=== PATIENT | female | born 1970 | race African-American/Black ===

== ENCOUNTER 2016-11-15 05:21 | Day surgery (SDC) | payer OTHER ==
[2016-10-31 12:57] VITALS: BMI 33.3
[~2016-11-15 05:21] MED LIST: BUPIVACAINE HCL/PF 0.5% (5MG/ML) 10 ML VIAL IJ ONE
[2016-11-15] MEDS ORDERED: BUPIVACAINE HCL/PF 0.5% (5MG/ML) 10 ML VIAL ONE (08:30)
[2016-11-15] MEDS ORDERED: LIDOCAINE HCL/PF 2% SDV 5ML VIAL ONE (08:48)
[2016-11-15] MEDS ORDERED: KETOROLAC TROMETHAMINE 30 MG/1 ML VIAL ONE (08:48)
[2016-11-15] MEDS ORDERED: MIDAZOLAM HCL 2 MG/2 ML SINGLE DOSE VIAL ONE (08:48)
[2016-11-15] MEDS ORDERED: PROPOFOL 20 ML ONE (08:48)
[2016-11-15] MEDS ORDERED: ceFAZolin SODIUM 1 GM VIAL ONE (08:48)
--- NOTE | 2016-11-15 09:28 | HP ---
Satellite [facility] - Chief Complaint Chief Complaint: right knee pain - Past Medical History Allergies/Adverse Reactions: Allergies Allergy/AdvReac Type Severity Reaction Status Date / Time No Known Drug Allergies Allergy Verified 11/15/16 08:19 ...LMP: 01/05/14 ...LMP Comment: s/p partial hysterectomy - Current Medications Current Medications: Home Medications Medication Instructions Recorded Docusate Sodium [Colace -] 100 mg PO TID 08/05/13 Emtricitabine/Tenofovir [Truvada -] 1 tab PO DAILY 08/05/13 Ferrous Sulfate 325 mg PO DAILY 08/05/13 Folic Acid 1 mg PO DAILY 08/05/13 Gabapentin [Neurontin] 300 mg PO QID 08/05/13 Multivitamin [Multivitamins] 1 each PO DAILY 08/05/13 Raltegravir [Isentress] 400 mg PO BID 08/05/13 Ranitidine HCl [Zantac] 150 mg PO HS 08/05/13 Ascorbic Acid [Vitamin C -] 500 mg PO DAILY 04/02/16 Atorvastatin Ca [Lipitor] 10 mg PO HS 04/02/16 Fish Oil 1,000 mg Softgel 1,000 mg PO DAILY 04/02/16 Losartan Potassium 50 mg PO BID 04/02/16 Maraviroc [Selzentry] 300 mg PO BID 04/02/16 Carvedilol [Coreg] 50 mg PO BID 10/31/16 Hydrochlorothiazide 25 mg PO DAILY 10/31/16 Quetiapine Fumarate "Xr" [Seroquel 50 mg PO DAILY 10/31/16 XR] Quetiapine Fumarate [Seroquel -] 25 mg PO HS 10/31/16 Aspirin [ASA -] 81 mg PO DAILY 11/15/16 Hydrocodone/Acetaminophen [[place] 1 - 2 each PO Q6H #40 tablet MDD 8 11/15/16 5-325 Tablet] Satellite Physical Exam - Physical Examination Vital Signs: Vital Signs Period Temp Pulse Resp BP Sys/Good Pulse Ox Last 24 Hr 98.6 F 101 18 149/89 98 General Appearance: Well Nourished, Well Developed, Alert & Oriented x3 ENT: Clear Lung: Normal air movement Heart: Regular rate & rhythm Extremities: Other (right knee- + swelling, + ttp ,decr rom, + mcmurrays, + apleys, nvi MRI + mmt) Neurological: Intact, Alert, Oriented Satellite Impression/Plan - Impression/Plan Impression: right knee mmt Operative Procedure: right knee arthroscopy Date to be Performed: 11/15/16
[2016-11-15] MEDS ORDERED: BUPIVACAINE HCL/PF 0.5% (5MG/ML) 10 ML VIAL IJ ONE (09:34)
--- NOTE | 2016-11-15 09:42 | OP ---
Operative Note - Note: Operative Date: 11/15/16 Pre-Operative Diagnosis: right knee medial meniscus tear, OA Operation: right knee arthroscopy, partial medial and lateral meniscectomy, debridement chondroplasty Post-Operative Diagnosis: Same as Pre-op Surgeon: Christ Quiles Anesthesiologist/CLINICIAN ONCOLOGY: Yi Villa Anesthesia: General, Local Specimens Removed: shavings Estimated Blood Loss (mls): 0 Drains, Volume Out (mls): 0 Blood Volume Replaced (mls): 0 Fluid Volume Replaced (mls): 500 Operative Report Dictated: Yes
[2016-11-15] MEDS ORDERED: ONDANSETRON 4 MG/2 ML VIAL IVPUSH PRN (09:49)
[2016-11-15] MEDS ORDERED: oxyCODONE HCL 5 MG TABLET PO PRN (09:49)
[2016-11-15] MEDS ORDERED: ACETAMINOPHEN 1000 MG/100 ML VIAL (NON FORMULARY) IVPB PRN (09:50)
[2016-11-15] MEDS ORDERED: LACTATED RINGERS SOLUTION 1,000 ML IV SCH (10:00)
--- NOTE | 2016-11-15 11:01 | OP ---
DATE OF OPERATION: DATE OF DICTATION: 11/15/2016 PREOPERATIVE DIAGNOSES: Right knee pain, medial meniscus tear, and osteoarthritis. POSTOPERATIVE DIAGNOSES: Right knee pain, medial meniscus tear, osteoarthritis, lateral meniscus tear. PROCEDURES: Right knee arthroscopy, partial medial and lateral meniscectomy, and debridement chondroplasty. SURGEON: Christ Quiles MD COATER OPERATOR: None. ANESTHESIOLOGIST: Yi Villa MD ANESTHESIA: LMA with local injection of 20 mL of 0.5% Marcaine. FLUID REPLACEMENT: 500 mL. SPECIMEN: Arthroscopic shavings. DRAINS: None. COMPLICATIONS: None. INDICATIONS: This patient is a 46-year-old female with a preoperative diagnosis of right knee pain, medial meniscus tear, and osteoarthritis. After understanding the potential risks, complications, alternatives, and benefits of surgical versus nonsurgical treatment, the patient elected to undergo the procedure. PROCEDURE: Patient was brought to the operating room, peripheral IV placed, IV sedation given. One gram of IV Ancef was given. LMA anesthesia was induced. Ample Webril was placed around the right thigh. Tourniquet was applied. The Styrofoam ring was applied. The right lower extremity was placed into the C-clamp leg rollins with ample padding throughout. The right lower extremity was prepped and draped in sterile fashion, elevated, exsanguinated with an Esmarch bandage, and tourniquet inflated to 250 mmHg. A superior medial outflow portal was established, a lateral portal was established under direct visualization. The arthroscope was placed into the knee under direct visualization. Using a spinal needle and a number-15 scalpel blade, a medial portal was established and a diagnostic arthroscopy was performed. Patient was seen to have some degenerative-type fraying of the medial meniscus, body and posterior horn, but overall that was not that bad. It was debrided with the curved shaver. Overall, the medial compartment looked good. There were mild grade 1 changes on the medial tibial plateau, but not at all of the medial femoral condyle. The intracondylar notch showed that the ACL had a partial tear. I put the probe through the ACL and had the appropriate tension, but clearly there were some fibers that were torn. These were debrided. The lateral compartment looked much worse than expected. The patient had significant areas of grade 4 chondromalacia on the lateral tibial plateau, large areas of grade 3 of the lateral femoral condyle, and a lateral meniscus which was almost completely gone. There was a lot of fraying. This was debrided. Photographs were taken before and after. A debridement chondroplasty was performed. The patellofemoral joint actually looked pretty good. There were very small areas of loose cartilage. This was debrided. After this debridement chondroplasty, the area was copiously irrigated and washed out. All excess saline removed. All debridement removed. The arthroscopy portals were closed with 3-0 nylon sutures. Next, 20 mL of 0.5% Marcaine injected into the joint. The area was then washed and dried, covered with Xeroform gauze, 4 x 4 gauze, Webril and an HAL bandage. The tourniquet was taken down after a total tourniquet time of 18 minutes. There were no complications during the case. The patient tolerated the procedure quite well and was brought to the ambulatory recovery room in stable condition. Rand [id number]
[2016-11-15 11:24] VITALS: TEMP 98.2
[2016-11-15 13:46] VITALS: BP 135/87; PULSE 83
--- NOTE | 2016-11-16 13:41 | PATH ---
Surgical Pathology Report Patient Name: JULIO BAEZA [facility]. Rec. #: [id number] /Age/Gender: 1970 (Age: 46) / F Account: [id number] Location: [facility] SUR[facility] Taken: 11/15/2016 Received: 11/15/2016 Reported: 11/16/2016 Physicians: Christ Quiles M.D. Specimen(s) Received SHAVINGS Clinical History Tear medial meniscus of right knee Final Diagnosis SOFT TISSUE, RIGHT KNEE, ARTHROSCOPIC SHAVINGS: MILDLY HYPERPLASTIC SYNOVIUM AND FIBROCARTILAGE WITH MYXOHYALINE DEGENERATION AND FIBRINOHEMORRHAGIC EXUDATE. Electronically Signed Genaro Rouse M.D. Gross Description Received in formalin, labeled "right knee shavings" is a 5.5 x 5.0 x 0.4 cm aggregate of alejandre-yellow soft tissue fragments. A fraud representative portion is submitted in one cassette. /11/15/2016 saudi11/15/2016
== END 2016-11-15 13:47 | disposition home or self-care (01) ==
LOC: JASU-SURG 05:21
PROVIDERS: ATTEND Orthopaedic Surgery
PROC: 0SBC4ZZ Excision of Right Knee Joint, Percutaneous Endoscopic Approach (ICD-10-PCS; 2016-11-15)
PROC: 0SBC4ZZ Excision of Right Knee Joint, Percutaneous Endoscopic Approach (ICD-10-PCS; principal; 2016-11-15 09:00)
DX: S83.241A Other tear of medial meniscus, current injury, right knee, initial encounter (principal); S83.281A Other tear of lateral meniscus, current injury, right knee, initial encounter; M17.11 Unilateral primary osteoarthritis, right knee; X58.XXXA Exposure to other specified factors, initial encounter; Y93.9 Activity, unspecified; Y92.9 Unspecified place or not applicable; Y99.9 Unspecified external cause status
CPT/HCPCS: 88304-TC; 94760

== ENCOUNTER 2017-07-30 11:05 | Day surgery (SDC) | payer OTHER ==
[2017-07-26 09:17] VITALS: BMI 33.6
[2017-07-30] MEDS ORDERED: ceFAZolin SODIUM 1 GM VIAL ONE (12:06)
[2017-07-30] MEDS ORDERED: MIDAZOLAM HCL 2 MG/2 ML SINGLE DOSE VIAL ONE (12:07)
[2017-07-30] MEDS ORDERED: PROPOFOL 20 ML ONE (12:07)
[2017-07-30] MEDS ORDERED: fentaNYL CITRATE 250 MCG/5 ML VIAL ONE (12:07)
[2017-07-30] MEDS ORDERED: ROCURONIUM BROMIDE 50 MG/5 ML VIAL ONE ×2 (12:07→13:12)
[2017-07-30] MEDS ORDERED: ceFAZolin SODIUM 1 GM VIAL IVPB ONE (12:30)
[2017-07-30] MEDS ORDERED: oxyCODONE HCL 5 MG TABLET PO PRN (12:52)
[2017-07-30] MEDS ORDERED: ONDANSETRON 4 MG/2 ML VIAL IVPUSH PRN (12:52)
[2017-07-30] MEDS ORDERED: IBUPROFEN 800 MG/8 ML IJ IVPB PRN (12:52)
[2017-07-30] MEDS ORDERED: HYDROmorphone HCL CARPU-JECT 1 MG/1 ML DISP.SYRIN IVPUSH PRN (12:52)
[2017-07-30] MEDS ORDERED: DEXAMETHASONE SOD PHOSPHATE 4 MG/1 ML VIAL ONE (12:57)
[2017-07-30] MEDS ORDERED: LACTATED RINGERS SOLUTION 1,000 ML IV SCH (13:00)
[2017-07-30] MEDS ORDERED: NEOSTIGMINE METHYLSULFATE 0.5 MG/ML - 10 ML MDV ONE (13:46)
[2017-07-30] MEDS ORDERED: GLYCOPYRROLATE 0.2 MG/1 ML VIAL ONE (13:46)
[2017-07-30] MEDS ORDERED: BUPIVACAINE HCL/PF 0.5% (5MG/ML) 10 ML VIAL IJ ONE (13:55)
[2017-07-30] MEDS ORDERED: HYDROmorphone HCL CARPU-JECT 2 MG/1 ML DISP.SYRIN ONE (14:23)
--- NOTE | 2017-07-30 14:41 | OP ---
Operative Note - Note: Operative Date: 07/30/17 Pre-Operative Diagnosis: ventral hernia Operation: laparoscopic ventral hernia repair with mesh Findings: infraumbilical incarcerated midline hernia and umbilical hernia. 4X6 oval mesh installed covering both defects in the midline Implants: 4X6 Echo PS mesh, metallic tacs Post-Operative Diagnosis: Same as Pre-op Surgeon: Travis Villatoro Broaching Machine Operator: Hector Randall Anesthesia: General, Local (0.5 marcaine 15ml) Specimens Removed: none Estimated Blood Loss (mls): 5 Drains & Tubes with Location: none Drains, Volume Out (mls): 400 (urine) Fluid Volume Replaced (mls): 800 Operative Report Dictated: Yes
[2017-07-30] MEDS ORDERED: HYDROmorphone HCL CARPU-JECT 2 MG/1 ML DISP.SYRIN IVPUSH PRN (14:42)
[2017-07-30] MEDS ORDERED: IBUPROFEN 800 MG/8 ML IJ IVPB ONE (14:50)
[2017-07-30 15:57] VITALS: TEMP 98.3
[2017-07-30] MEDS ORDERED: oxyCODONE HCL 5 MG TABLET ONE ×2 (16:00→17:59)
[2017-07-30] MEDS ORDERED: oxyCODONE HCL 5 MG TABLET PO ONE (18:01)
[2017-07-30 18:38] VITALS: BP 140/78; PULSE 98
--- NOTE | 2017-08-03 13:13 | OP ---
DATE OF OPERATION: 07/30/2017 PREOPERATIVE DIAGNOSIS: Ventral incisional hernia. POSTOPERATIVE DIAGNOSIS: Incarcerated ventral incisional hernia, infraumbilical. PROCEDURE: Laparoscopic ventral hernia repair with mesh. ATTENDING SURGEON: Travis Villatoro MD PRINTING ENGINEER: Hector Randall MD ANESTHESIA: General with local, local consisting of 0.5% Marcaine at 15 mL in an area block fashion. ESTIMATED BLOOD LOSS: 5 mL. INTRAVENOUS FLUID: 800 mL. DRAINS: None. Benoit catheter removed and replaced. URINE OUTPUT: 400. IMPLANT: Echo PS Mesh with metallic tags, size 4 x 6. SPECIMEN: No specimens. INDICATIONS: Patient is a 46-year-old female with HIV, hypertension, obesity, who presents after a laparoscopic hysterectomy with umbilical pain, intermittent, reports of a painful bulge in the abdomen which has been persistent since 2013. She had a CT scan preoperatively, identifying a hernia defect in the midline at the umbilicus below as well as a ratty appearance to the right upper rectus in the right upper quadrant. She was counseled regarding the need for hernia repair, a laparoscopic herniorrhaphy with mesh. She was explained the risks, benefits, and alternatives, signed informed consent, and was taken to the procedure. DESCRIPTION OF PROCEDURE: The patient was brought to the operating room. She was placed in supine position on the operating table with bilateral arms extended at 90 degrees perpendicular to the bodys axis. The patients lower extremities had ELMO stockings and SCDs applied. She received intravenous antibiotics, prophylactic Ancef 2 g. She was induced with general anesthesia, endotracheally intubated. A formal time-out was completed identifying the operative site. With all parties in agreement, we proceeded first with an anterior sterile prep and drape of the anterior abdominal wall. We proceeded first with left upper quadrant subcostal incision with a Sabra entry for a 12-mm port. It was scribed on the skin and then incised with a 15-blade scalpel. It was deepened and widened through subcutaneous tissues with Bovie cautery to the anterior fascia. The anterior fascia was identified and divided. Kochers were placed, and a small amount of muscle was then divided. When entry into the abdomen was made under direct visualization, a 12-mm trocar site was installed, and hen, balloon cuff inflated, and a pneumoperitoneum of 15 mmHg was established. After completing the pneumoperitoneum, we proceeded then with identification of entry sites for the lateral ports. It was clear on entry that there was no damage to intraabdominal viscera, but there was a small amount of omentum, which was adherent to a small defect that was infraumbilical. The umbilicus was identified by palpation, and there did appear to be a small defect about 1 cm galena at the umbilicus. The omentum was then reduced into the abdomen with pressure, but was adherent and incarcerated in the small defect that was infraumbilical in the midline raphe of the rectus. We made 2 lateral ports for the application of mesh. One was in the xiphisternum area and the other was in the left lateral abdomen and lower quadrant. These 5-mm ports were installed under direct visualization with blunt obturators to avoid any damage to intraabdominal viscera. Once these ports were installed, the omental adhesion was reduced into the abdomen, and with Bovie cautery on an EndoShears, it was taken down from the anterior abdominal wall. It dropped into the abdomen without other concern. At this point, it was clear that there were 2 herniated defects with preperitoneal fat. The preperitoneal fat was debrided, and hemostasis was obtained with cautery. We then proceeded with identification of a site for the mesh at the skin, and decision was made to use a 4 x 6 inch mesh, Echo PS, centering the mesh between the 2 defects and 1 at the umbilicus, excluding that defect, and then, 2 at the small 1-cm defect in the lower midline. There were no other hernial defeats apparent in the anterior abdominal wall. It was all visualized. The mesh itself was measured at the skin and inscribed on the skin. We then proceeded to install the Echo Mesh through the 12-mm port. It was rolled and introduced into the abdomen, pneumoperitoneum was reestablished, and it was positioned. A small stab incision was made at the center of the mesh to allow for the inflation of the balloon. It was retrieved from the abdomen using suture passer from a small stab incision from the skin. Once the hose was retrieved, it was cut, and then, the balloon was inflated in the abdomen. Using standard Echo PS protocols, it was tractioned into position and went against the anterior abdominal wall. A 5-mm tacker was used to tack the mesh circumferentially around its perimeter excluding both the infraumbilical defect at the port site for her hysterectomy as well as at the umbilical defect. The balloon system was then deflated and removed from the abdomen in its entirety through the 12-mm port. When the pneumoperitoneum was reestablished, the remaining mesh edges were then tacked using the 5-mm tacker to the anterior abdominal wall. The repair was checked for integrity. The mesh appeared well adherent to the anterior abdominal wall. Hemostasis was present, and there was no damage to intraabdominal viscera. The 5-mm trocars were removed under direct visualization followed by the Sabra port. Then, 0 Vicryl was used to close the port site defect in the left upper quadrant at the site of the Sabra. It was tied with figure-of-8 sutures and to ablate the space. The site was cleaned, irrigated, and local anesthetic was laid into the skin to allow for postoperative pain control. The pneumoperitoneum was finally relieved, and the skin was then closed with 4-0 Vicryl in interrupted fashion, with a running subcuticular at the 12-mm port site and simple interrupted sutures at the 5-mm port sites. The patient was awoken from general anesthesia and extubated in the operating room. Counts were correct. She was stable throughout the procedure and returned to recovery in stable condition. MD RAMONA Bear/[id number]
== END 2017-07-30 18:39 | disposition home or self-care (01) ==
LOC: JASU-SURG 11:05
PROC: 0WUF4JZ Supplement Abdominal Wall with Synthetic Substitute, Percutaneous Endoscopic Approach (ICD-10-PCS; principal; 2017-07-30 13:00)
DX: K43.0 Incisional hernia with obstruction, without gangrene (principal)
CPT/HCPCS: 94760

== ENCOUNTER 2017-11-25 05:20 | Day surgery (SDC) | payer OTHER ==
[2017-11-22 11:03] VITALS: BMI 34.5
[~2017-11-25 05:20] MED LIST changes: +LIDOCAINE HCL 1%, 10 MG/ML (20ML VIAL) INF ONE; +TRIAMCINOLONE ACET 40MG/1ML VIAL IM ONE
[2017-11-25] MEDS ORDERED: TRIAMCINOLONE ACET 40MG/1ML VIAL ONE ×2 (10:29→10:32)
[2017-11-25] MEDS ORDERED: LIDOCAINE HCL 1%, 10 MG/ML (20ML VIAL) ONE (10:30)
--- NOTE | 2017-11-25 11:11 | OP ---
Operative Note - Note: Operative Date: 11/25/17 Pre-Operative Diagnosis: Right carpal tunnel syndrome and Right lateral epicondylitis Operation: Right Carpal tunnel release and median nerve neurolysis and Right lateral epicondyle injection of steroid Findings: Inflamed right median nerve, Kenalog-40 injected at right lateral epicondyle, TP 250mmHg, TT 12 mins, right wrist volar resting splint Post-Operative Diagnosis: Same as Pre-op Surgeon: Travis Villatoro Anesthesiologist/STORE STOCK HELP: Ester Wall Anesthesia: Local (20ml lidocaine 1%), MAC Estimated Blood Loss (mls): 1 Fluid Volume Replaced (mls): 600 (crystalloid ) Operative Report Dictated: Yes
--- NOTE | 2017-11-25 11:17 | DS ---
Physical Examination Vital Signs: Vital Signs Temperature 98.0 F 11/22/17 10:58 Pulse Rate 92 H 11/22/17 10:58 Respiratory Rate 20 11/22/17 10:58 Blood Pressure 122/76 11/22/17 10:58 O2 Sat by Pulse Oximetry (%) 100 11/25/17 11:11 Vital Signs Period Temp Pulse Resp BP Sys/Good Pulse Ox Last 24 Hr 100 Constitutional: Yes: No Distress, Calm, Obese Eyes: Yes: Conjunctiva Clear, EOM Intact HENT: Yes: Atraumatic, Normocephalic Neck: Yes: Supple, Trachea Midline Cardiovascular: Yes: Regular Rate and Rhythm, S1, S2 Respiratory: Yes: Regular, CTA Bilaterally Gastrointestinal: Yes: Normal Bowel Sounds, Soft. No: Tenderness ...Rectal Exam: Yes: Deferred Musculoskeletal: Yes: Muscle Weakness (right and 4/5,), Other Extremities: Yes: Other (+Tinel bilateral TCL R>>L). No: Cool, Cyanosis Edema: No Wound/Incision: Yes: Clean/Dry, Well Approximated, Sutures Intact, Dressing Dry and Intact Neurological: Yes: Alert, Oriented Psychiatric: Yes: Alert, Oriented Discharge Summary Reason For Visit: CARPAL TUNNEL SYNDROME and LATERAL EPICONDYLITIS G56.01, M77.11 Procedures: Principal: Right Carpal Tunnel Release and medain nerve neurolysis, RIght lateral epicondyle injection of steroid Hospital Course: Admitted for an ambulatory surgical procedure. Uneventful Right CTR and Right epicondyle injection, stable for discharge home with followup plan. Condition: Improved - Instructions Diet, Activity, Other Instructions: Postoperative instructions: You had a right carpal tunnel release and right lateral epicondyle injection on 11/25/[address] Travis Villatoro of [facility]. Activity: Resume your usual activities gradually, but no heavy exertion or lifting more than 10-15 pounds for 4-6 weeks. You may shower daily but please keep your dressing clean and dry for 1 week. Sutures will need to be removed at follow up appointment. Eat lightly at first, but advance to your usual diet as tolerated. Pain: For pain, you may use and alternate Tylenol (acetaminophen) and/or ibuprofen every 6 hours each as needed; this means that you can take one OR the other at 3-hour intervals. If you are prescribed a Tylenol/narcotic combination for severe pain, use it instead of plain Tylenol as needed and switch back when your pain starts decreasing. Do not take more than 4000mg of acetaminophen in a day. Take medications as prescribed or indicated on the labeling. Follow-up: Call Dr. Villatoro' office at [phone] to make your postop appointment (Saturday 1 week after surgery as advised). Clinic is held in the Diagnostic Center on the first floor of [facility]. Call the office if you have: * increasing pain not responsive to pain medication * fever of 101F or higher * unusual or increasing bleeding or drainage from wounds * increasing redness or swelling at wound sites Also, see your primary medical doctor within 1-2 weeks. Disposition: HOME - Home Medications Comprehensive Discharge Medication List: Ambulatory Orders Docusate Sodium [Colace -] 100 mg PO TID 08/05/13 Emtricitabine/Tenofovir [Truvada -] 1 tab PO DAILY 08/05/13 Ferrous Sulfate 325 mg PO DAILY 08/05/13 Multivitamin [Multivitamins] 1 each PO DAILY 08/05/13 Raltegravir [Isentress] 400 mg PO BID 08/05/13 Ranitidine HCl [Zantac] 150 mg PO HS 08/05/13 Ascorbic Acid [Vitamin C -] 500 mg PO DAILY 04/02/16 Fish Oil 1,000 mg Softgel 1,000 mg PO DAILY 04/02/16 Losartan Potassium 50 mg PO BID 04/02/16 Maraviroc [Selzentry] 300 mg PO BID 04/02/16 Carvedilol [Coreg] 50 mg PO BID 10/31/16 Quetiapine Fumarate "Xr" [Seroquel XR] 50 mg PO HS 10/31/16 Quetiapine Fumarate [Seroquel -] 25 mg PO DAILY 10/31/16 Aspirin Coated [Ecotrin -] 81 mg PO DAILY 07/26/17 Atorvastatin Ca [Lipitor] 10 mg PO HS 07/26/17 Cholecalciferol (Vitamin D3) [Vitamin D3] 1,000 unit PO DAILY 07/26/17 Folic Acid 1 mg PO DAILY 07/26/17 Gabapentin [Neurontin] 300 mg PO TID 07/26/17 Hydrochlorothiazide [Hctz -] 25 mg PO DAILY 07/26/17 Vitamin E 400 unit PO DAILY 07/26/17 Ibuprofen [Motrin -] 600 mg PO TID #21 tablet 07/30/17
[2017-11-25] MEDS ORDERED: MIDAZOLAM HCL 2 MG/2 ML SINGLE DOSE VIAL ONE (11:48)
[2017-11-25] MEDS ORDERED: PROPOFOL 20 ML ONE (11:58)
[2017-11-25] MEDS ORDERED: TRIAMCINOLONE ACET 40MG/1ML VIAL IM ONE ×2 (12:00→12:07)
[2017-11-25] MEDS ORDERED: LIDOCAINE HCL 1%, 10 MG/ML (20ML VIAL) INF ONE (12:09)
[2017-11-25] MEDS ORDERED: BUPIVACAINE HCL/PF 0.5% (5MG/ML) 10 ML VIAL IJ ONE (12:09)
[2017-11-25] MEDS ORDERED: ONDANSETRON 4 MG/2 ML VIAL IVPUSH PRN (14:01)
[2017-11-25] MEDS ORDERED: oxyCODONE HCL 5 MG TABLET PO PRN (14:01)
[2017-11-25] MEDS ORDERED: LACTATED RINGERS SOLUTION 1,000 ML IV SCH (14:15)
[2017-11-25 17:29] VITALS: BP 117/76; PULSE 91; TEMP 98
--- NOTE | 2017-12-02 11:43 | OP ---
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 PROCEDURE: Right carpal tunnel release and median nerve neurolysis and right lateral epicondyle steroid injection. ATTENDING SURGEON: Travis Villatoro MD AIR QUALITY ENGINEER: No one. ANESTHESIA: Local and MAC. Local consisted of 0.25% Marcaine and 1% lidocaine. A total of 20 mL given in the area in block fashion. ESTIMATED BLOOD LOSS: Scant. TOURNIQUET TIME: 18 minutes. TOURNIQUET PRESSURE: 250 mmHg. IV FLUID ADMINISTERED: 600. BRIEF FINDINGS: The patient had a right carpal tunnel compressive neuropathy on the transverse carpal ligament and a right lateral epicondyle tenderness, which was easily provoked on pronation and marked preoperatively. INDICATION: The patient is presenting with a history of bilateral compressive neuropathy, some sensory loss, and weakness in the right hand. She was counseled regarding risks, benefits, and alternatives to surgical neurolysis and decompression of the carpal tunnel. Signed informed consent. She also had lateral epicondylitis, which was evoked on physical examination and had never had steroid injectable. She signed informed consent and was taken for the procedure. DESCRIPTION OF PROCEDURE: The patient was brought to the operating room and placed in supine position on the operating table with the right arm extended at 90 degrees perpendicular to the body's axis at the shoulder to the midline axis. Right hand and forearm were prepped and draped from the shoulder to the fingertip in standard sterile fashion. The patient had bilateral lower extremity SCDs placed. The patient was induced with sedation, provided with supplemental oxygen, and was stable at which point a formal time-out was completed identifying the operative site. We proceeded first with all parties in agreement. We proceeded first with localizing the outlet to the carpal tunnel in the palm with the right ring finger opposed and folded into the palm making a linear incision at the outlet the carpal tunnel at which point we began first with an area block consisting of 0.25% Marcaine and 1% lidocaine. This was given approximately 20 mL in this area at which point we proceeded then with a 15-blade scalpel after the arm was exsanguinated and tourniquet inflated to 250 mmHg. We started with a 15-blade scalpel in the palm opening the incision and deepening and widening it through the subcutaneous skin. A self-retaining retractor was interposed at this point a plane was developed just superior to the transverse carpal ligament as it coursed past the wrist with a [place] elevator. We then proceeded with opening the palmar fascia at its central aspect with a 15-blade scalpel under direct visualization. When a small window was created, a [place] was then passed under the transverse cardinal ligament freeing it of the connective tissue and protecting the carpal canal structures. We proceeded then with opening the transverse cardinal ligament under direct visualization using a tenotomy scissor. This was done through the level of the wrist at which point the transverse carpal ligament was spread wide, and the median nerve was identified. The median nerve itself was identified and then debrided of a small amount of synovial fluid, which encased it. It did appear somewhat injected and somewhat swollen, definitely clinched in this area. After debridement of this injected synovium, the site was irrigated again with sterile irrigation fluid. The self-retaining retractor was removed, and the skin was approximated with a vertical mattress in the middle of the incision of 4-0 nylon followed by interrupted 4-0 nylon stitches both proximal and distal to approximate and amy the skin edges on the palm. The skin was then cleaned. Sterile dressing and a volar resting splint was placed in a position of function at the wrist approximately 35 degrees of extension at the wrist. Fingers and thumb remained free and had webspace protection. We then turned our attention to the lateral elbow, which was marked preoperatively with a provocative test on the lateral epicondyle with a large X. This site was then injected with Kenalog 40 to the bone withdrawing approximately a mm and delivering the bolus towards the tendinous body of the muscle wad. The patient then had a Band-Aid placed on the skin. She was awoken from general anesthesia having tolerated procedure well. She was given instructions to follow up in a period of 1 week for re-evaluation of the site, provided with pain medication. MD RAMONA Bear/[id number]
== END 2017-11-25 17:15 | disposition home or self-care (01) ==
LOC: JASU-SURG 05:20
PROC: 01N50ZZ Release Median Nerve, Open Approach (ICD-10-PCS; principal; 2017-11-25 11:30)
DX: G56.03 Carpal tunnel syndrome, bilateral upper limbs (principal); G56.80 Other specified mononeuropathies of unspecified upper limb; M77.11 Lateral epicondylitis, right elbow
CPT/HCPCS: 94760

== ENCOUNTER 2018-02-17 05:46 | Day surgery (SDC) | payer OTHER ==
[2018-02-05 15:08] VITALS: BMI 34.5
[~2018-02-17 05:46] MED LIST changes: -BUPIVACAINE HCL/PF 0.5% (5MG/ML) 10 ML VIAL IJ ONE; +CEFAZOLIN 2 GM/D5W 2 GM/50 ML ML IVPB ONE; +CELECOXIB 200 MG CAPSULE PO ONE; +GABAPENTIN 300 MG CAPSULE (FP) PO ONE; -LIDOCAINE HCL 1%, 10 MG/ML (20ML VIAL) INF ONE; +PANTOPRAZOLE 40 MG TABLET (FP) PO ONE; +ROPIVICAINE 0.2%/MORPH PF/KETOROLAC - 51ML DISP.SYRINGE IA ONE; +TRANEXAMIC ACID 1000 MG/10 ML VIAL IVPUSH ONE; -TRIAMCINOLONE ACET 40MG/1ML VIAL IM ONE; +oxyCODONE HCL 10 MG SUSTAINED ACTING TABLET PO ONE
[2018-02-17] MEDS ORDERED: VANCOMYCIN 1,000 MG VIAL (RESTRICTED TO ID ONLY) ONE (07:11)
[2018-02-17] MEDS ORDERED: ceFAZolin SODIUM 1 GM VIAL ONE ×2 (07:11→07:58)
[2018-02-17] MEDS ORDERED: BUPIVACAINE HCL/PF (5 MG/ML) 30 ML VIAL IJ ONE (07:15)
[2018-02-17] MEDS ORDERED: ROPIVACAINE HCL 0.5% 30ML VIAL ONE ×2 (07:15→07:35)
[2018-02-17] MEDS ORDERED: MIDAZOLAM HCL 2 MG/2 ML SINGLE DOSE VIAL ONE (07:15)
[2018-02-17] MEDS ORDERED: BUPIVACAINE LIPOSOME/PF (EXPAREL) 266 MG/20 ML VIAL ONE (07:15)
[2018-02-17] MEDS ORDERED: SODIUM CHLORIDE 0.9% P/F 10 ML VIAL IJ ONE (07:15)
[2018-02-17] MEDS ORDERED: DEXAMETHASONE SOD PHOSPHATE/PF 10 MG/ML SDV ONE (07:22)
--- NOTE | 2018-02-17 07:27 | HP ---
Admitting History and Physical - Admission Chief Complaint: right knee osteoarthritis x years History of Present Illness: 47 year old female presents today in regard to her right knee. Longstanding history of right knee osteoarthritis. Patient complains of pain, limited ROM, difficulty ambulating and difficulty with activities of daily living. Patient has failed conservative treatment measures including PO medication, activity modification, exercise program and injections. At this point, patient would like to proceed with surgical intervention - right partial knee replacement, MAKOplasty (lateral compartment). History Source: Patient - Past Medical History Cardiovascular: Yes: HTN Gastrointestinal: Yes: GERD ...LMP: 01/05/14 ...LMP Comment: S/P HYSTERECTOMY Heme/Onc: Yes: Anemia Infectious Disease: Yes: HIV Musculoskeletal: Yes: Osteoarthritis - Past Surgical History Additional Past Surgical History: See written history & physical. - Smoking History Smoking history: Never smoked Have you smoked in the past 12 months: No - Alcohol/Substance Use Hx Alcohol Use: Yes (OCC) Home Medications - Allergies Allergies/Adverse Reactions: Allergies Allergy/AdvReac Type Severity Reaction Status Date / Time No Known Drug Allergies Allergy Verified 02/05/18 14:52 - Home Medications Home Medications: Ambulatory Orders Docusate Sodium [Colace -] 100 mg PO TID 08/05/13 Emtricitabine/Tenofovir [Truvada -] 1 tab PO DAILY 08/05/13 Ferrous Sulfate 325 mg PO DAILY 08/05/13 Multivitamin [Multivitamins] 1 each PO DAILY 08/05/13 Raltegravir [Isentress] 400 mg PO BID 08/05/13 Ranitidine HCl [Zantac] 150 mg PO HS 08/05/13 Ascorbic Acid [Vitamin C -] 500 mg PO DAILY 04/02/16 Losartan Potassium 50 mg PO BID 04/02/16 Maraviroc [Selzentry] 300 mg PO BID 04/02/16 Carvedilol [Coreg] 50 mg PO BID 10/31/16 Quetiapine Fumarate "Xr" [Seroquel XR] 50 mg PO HS 10/31/16 Quetiapine Fumarate [Seroquel -] 25 mg PO DAILY 10/31/16 Aspirin Coated [Ecotrin -] 81 mg PO DAILY 07/26/17 Atorvastatin Ca [Lipitor] 10 mg PO HS 07/26/17 Cholecalciferol (Vitamin D3) [Vitamin D3] 1,000 unit PO DAILY 07/26/17 Folic Acid 1 mg PO DAILY 07/26/17 Gabapentin [Neurontin] 300 mg PO TID 07/26/17 Hydrochlorothiazide [Hctz -] 25 mg PO DAILY 07/26/17 Vitamin E 400 unit PO DAILY 07/26/17 Oxycodone HCl 30 mg PO TID PRN 01/14/18 Review of Systems - Review of Systems Musculoskeletal: reports: Crepitus (right knee), Decreased ROM (right knee) Physical Examination Constitutional: Yes: Well Nourished, No Distress Eyes: Yes: Conjunctiva Clear HENT: Yes: Atraumatic, Normocephalic Neck: Yes: Supple Cardiovascular: Yes: Regular Rate and Rhythm Respiratory: Yes: Regular Gastrointestinal: Yes: Soft ...Rectal Exam: Yes: Deferred Musculoskeletal: Yes: Joint Stiffness (right knee), Joint Swelling (right knee) Assessment/Plan 47 year old female presents today in regard to her right knee. Longstanding history of right knee osteoarthritis. Patient complains of pain, limited ROM, difficulty ambulating and difficulty with activities of daily living. Patient has failed conservative treatment measures including PO medication, activity modification, exercise program and injections. At this point, patient would like to proceed with surgical intervention - right partial knee replacement, MAKOplasty (lateral compartment). Pros, cons, risks, benefits & alternatives of a right partial knee replacement (lateral compartment), MAKOplasty was discussed with the patient at length. Patient confirms their understanding and consents to proceed with a right partial knee replacement (lateral compartment) , MAKOplasty.
[2018-02-17] MEDS ORDERED: PROPOFOL 20 ML ONE ×6 (07:58)
[2018-02-17] MEDS ORDERED: BUPIVACAINE 0.75% IN DEXTROSE/PF 2ML AMPULE NR ONE (08:03)
[2018-02-17] MEDS ORDERED: ROPIVICAINE 0.2%/MORPH PF/KETOROLAC - 51ML DISP.SYRINGE IA ONE ×2 (09:09→10:56)
[2018-02-17] MEDS ORDERED: TRANEXAMIC ACID 1000 MG/10 ML VIAL IVPB ONE ×2 (09:09→10:56)
[2018-02-17] MEDS ORDERED: VANCOMYCIN 1,000 MG VIAL (RESTRICTED TO ID ONLY) IVPB ONE ×2 (09:10→10:56)
[2018-02-17] MEDS ORDERED: oxyCODONE HCL 5 MG TABLET PO PRN (11:30)
[2018-02-17] MEDS ORDERED: ONDANSETRON 4 MG/2 ML VIAL IVPUSH PRN ×2 (11:30→12:11)
[2018-02-17] MEDS ORDERED: LACTATED RINGERS SOLUTION 1,000 ML IV SCH ×2 (11:30→12:15)
[2018-02-17] MEDS: ACETAMINOPHEN 1000 MG/100 ML VIAL (NON FORMULARY) IVPB ONE ×2 (11:45→19:19)
[2018-02-17] MEDS ORDERED: traMADol HCL 50 MG TABLET ONE (11:52)
[2018-02-17] MEDS ORDERED: KETOROLAC TROMETHAMINE 30 MG/1 ML VIAL ONE (11:52)
--- NOTE | 2018-02-17 12:05 | OP ---
Operative Note - Note: Operative Date: 02/17/18 Pre-Operative Diagnosis: Right knee lateral compartment OA Operation: Right knee lateral MAKOplasty partial knee replacement Post-Operative Diagnosis: Same as Pre-op Surgeon: Travis Crawford Manager Wellness: Ines Santos Anesthesia: Spinal Estimated Blood Loss (mls): 50
[2018-02-17] MEDS ORDERED: PATIENT'S OWN MEDICATION (NON-FORMULARY) (Oxycodone Hcl [Oxycodone Hcl] 30 MG) PO PRN (12:07)
[2018-02-17] MEDS ORDERED: MAG HYDROX/AL HYDROX/SIMETH 30 ML UNIT-DOSE CUP PO PRN (12:11)
[2018-02-17] MEDS ORDERED: ACETAMINOPHEN 1000 MG/100 ML VIAL (NON FORMULARY) IVPB ONE (12:16)
[2018-02-17] MEDS: GABAPENTIN 300 MG CAPSULE (FP) PO SCH ×2 (16:29→21:22)
[2018-02-17] MEDS: oxyCODONE HCL 5 MG TABLET PO PRN ×2 (16:30→21:22)
[2018-02-17] MEDS: traMADol HCL 50 MG TABLET PO SCH (17:28)
[2018-02-17] MEDS: CEFAZOLIN 2 GM/D5W 2 GM/50 ML ML IVPB SCH (17:28)
[2018-02-17] MEDS: KETOROLAC TROMETHAMINE 30 MG/1 ML VIAL IVPUSH SCH (17:28)
[2018-02-17] MEDS: ACETAMINOPHEN 325 MG TABLET (FP) PO SCH (17:28)
[2018-02-17] MEDS ORDERED: DEXAMETHASONE SOD PHOSPHATE 10 MG/1 ML VIAL IVPB ONE (20:00)
[2018-02-17] MEDS ORDERED: PT OWN MED DRAWER 7, Y5N ONE (20:55)
[2018-02-17] MEDS: CARVEDILOL 25 MG TABLET (FP) PO SCH (21:21)
[2018-02-17] MEDS: ASCORBIC ACID 500 MG TABLET (FP) PO SCH (21:21)
[2018-02-17] MEDS: LOSARTAN POTASSIUM 50 MG TABLET (FP) PO SCH (21:21)
[2018-02-17] MEDS: SENNOSIDES/DOCUSATE COMBO (SENNA PLUS) TABLET (UD) PO SCH (21:21)
[2018-02-17] MEDS: oxyCODONE HCL 10 MG SUSTAINED ACTING TABLET PO SCH (21:22)
[2018-02-17] MEDS: CELECOXIB 200 MG CAPSULE PO SCH (21:22)
[2018-02-17] MEDS: RALTEGRAVIR POTASSIUM 400 MG TAB PO SCH (21:23)
[2018-02-17] MEDS: MARAVIROC 150 MG TAB PO SCH (21:24)
[2018-02-17] MEDS ORDERED: ATORVASTATIN CA 10 MG TABLET (FP) PO SCH (22:00)
[2018-02-17] MEDS ORDERED: GABAPENTIN 300 MG CAPSULE (FP) PO SCH (22:00)
[2018-02-18] MEDS: CEFAZOLIN 2 GM/D5W 2 GM/50 ML ML IVPB SCH (01:46)
[2018-02-18] MEDS: traMADol HCL 50 MG TABLET PO SCH ×4 (01:47→18:07)
[2018-02-18] MEDS: ACETAMINOPHEN 325 MG TABLET (FP) PO SCH ×4 (01:47→18:08)
[2018-02-18] MEDS: KETOROLAC TROMETHAMINE 30 MG/1 ML VIAL IVPUSH SCH ×3 (01:47→13:46)
[2018-02-18] MEDS: oxyCODONE HCL 5 MG TABLET PO PRN (06:45)
[2018-02-18] MEDS: GABAPENTIN 300 MG CAPSULE (FP) PO SCH ×2 (06:45→13:47)
[2018-02-18 07:55] LABS: HEMATOCRIT 35.2 % (32.4-45.2); HEMOGLOBIN 11.6 GM/dl (10.7-15.3); MCH 29.4 pg (25.7-33.7); MCHC 33.1 g/dl (32.0-36.0); MEAN CELL VOLUME 88.7 fl (80-96); MEAN PLT VOLUME 8.6 fl (7.5-11.1); PLATELET COUNT 283 K/MM3 (134-434); RBC 3.97 M/mm3 (3.60-5.2); RDW 13.3 % (11.6-15.6); WHITE BLOOD COUNT 13.5 K/mm3 (4.0-10.8)
[2018-02-18] MEDS ORDERED: ASPIRIN 325 MG TABLET PO SCH (08:00)
[2018-02-18 08:16] LABS: ANION GAP 6 MMOL/L (8-16); BLOOD UREA NITROGEN 20 mg/dl (7-18); CALCIUM 8.5 mg/dl (8.4-10.2); CHLORIDE 102 mmol/L (98-107); CO2 27 mmol/L (22-28); GLUCOSE,RANDOM 134 mg/dl (74-106); POTASSIUM 3.5 mmol/L (3.5-5.1); SODIUM 135 mmol/L (136-145)
[2018-02-18] MEDS ORDERED: PT OWN MED DRAWER 7, Y5N ONE (09:26)
[2018-02-18] MEDS: CARVEDILOL 25 MG TABLET (FP) PO SCH (09:44)
[2018-02-18] MEDS: oxyCODONE HCL 10 MG SUSTAINED ACTING TABLET PO SCH (09:44)
[2018-02-18] MEDS: SENNOSIDES/DOCUSATE COMBO (SENNA PLUS) TABLET (UD) PO SCH (09:45)
[2018-02-18] MEDS: ASCORBIC ACID 500 MG TABLET (FP) PO SCH (09:45)
[2018-02-18] MEDS: LOSARTAN POTASSIUM 50 MG TABLET (FP) PO SCH (09:46)
[2018-02-18] MEDS: RALTEGRAVIR POTASSIUM 400 MG TAB PO SCH (09:47)
[2018-02-18] MEDS: MARAVIROC 150 MG TAB PO SCH (09:47)
[2018-02-18] MEDS ORDERED: FOLIC ACID 1 MG TABLET (FP) PO SCH (10:00)
[2018-02-18] MEDS ORDERED: HYDROCHLOROTHIAZIDE 25 MG TABLET (FP) PO SCH (10:00)
[2018-02-18] MEDS ORDERED: QUEtiapine FUMARATE 25 MG TABLET (FP) PO SCH (10:00)
[2018-02-18] MEDS ORDERED: MULTIVITAMINS (DAILY MVI) TABLET (FP) PO SCH (10:00)
[2018-02-18] MEDS: CELECOXIB 200 MG CAPSULE PO SCH (10:00)
[2018-02-18] MEDS ORDERED: EMTRICITABINE 200MG/TENOFOVIR 300MG PO SCH (10:00)
[2018-02-18] MEDS ORDERED: PANTOPRAZOLE 40 MG TABLET (FP) PO SCH (10:00)
--- NOTE | 2018-02-18 12:32 | PN ---
Progress Note (short form) - Note Progress Note: ANESTHESIA POST-OP: 47 yo female POD#1 s/p Right partial knee replacement Patient resting comfortably in chair. Pain adequately controlled. Tolerating PO. Ambulating with assistance and participating in PT. VSS, afebrile Continue current care, encourage IS and active participation in therapy.
[2018-02-18 14:15] VITALS: BP 116/69; PULSE 88; TEMP 97.6
--- NOTE | 2018-02-18 15:01 | DS ---
Physical Examination Vital Signs: Vital Signs Temperature 97.6 F 02/18/18 14:14 Pulse Rate 88 02/18/18 14:14 Respiratory Rate 16 02/18/18 14:14 Blood Pressure 116/69 02/18/18 14:14 O2 Sat by Pulse Oximetry (%) 97 02/18/18 14:14 Labs: CBC, BMP 02/18/18 07:00 02/18/18 07:00 Discharge Summary Reason For Visit: RIGHT KNEE OSTEOARTHRITIS Current Active Problems Osteoarthritis of right knee (Acute) Procedures: Principal: right knee MAKOplasty lateral partial knee replacement Hospital Course: Admitted for elective surgery. Procedure performed without complications. Pt received postoperative antibiotic prophylaxis and DVT ppx. Ambulated with physical therapy. Stable for discharge home with outpatient followup. Condition: Stable - Instructions Diet, Activity, Other Instructions: Dr. Crawford - Knee Replacement Instructions Keep the Aquacel dressing on until removed by Dr. Crawford in 10-14 days - it is antibacterial and waterproof and you can shower with it on. Call the office for a follow-up appointment with Dr. Crawford in 10-14 days. Take one Aspirin 325mg daily for 6 weeks to prevent blood clots in your legs. After 6 weeks go back to your previous dose of 81mg daily. Resume taking Zantac daily to protect against heartburn and ulcers. Take Cephalexin (antibiotic) 3x/day for 10 days to help prevent skin infection. Take Celebrex 200mg twice daily for 30 days to reduce swelling and inflammation. Take a multivitamin, stool softener, and extra Vitamin C supplement daily. For pain: You were previously on a strong pain management medication - oxycodone 30mg every 8 hours. Try taking these prescribed medications (smaller doses) every 4 hours instead. If that is not enough then go back to your previous pain management dose and call the office to let us know. *Mild pain (1-3/10): Take 1 Tramadol tablet every 4 hours as needed. Moderate pain (4-6/10): Take 1 Tramadol tablet and 1 Percocet tablet every 4 hours as needed. Severe pain (7-10/10): Take 1 Tramadol tablet and 2 Percocet tablets every 4 hours as needed. Activity: You can put as much weight on the operative leg as you want. Right after you get home, there will be a physical therapist coming to your house to help you walk around and bend/straighten your knee. After your follow-up appointment, you will be sent for more intensive outpatient physical therapy which will include machines and equipment that the home therapist cannot bring to your house. Always use a walker or cane for balance and to prevent falls. Expect to see swelling/bruising from the operative site all the way down to your toes. Wear the compression stocking on the operative side during the day to minimize how much swelling there is in your foot/ankle. Don't wear the stocking at night. You don't have to wear a stocking on the other side. Disposition: VNS/HOME HEALTH CARE - Home Medications Comprehensive Discharge Medication List: Ambulatory Orders Docusate Sodium [Colace -] 100 mg PO TID 08/05/13 Emtricitabine/Tenofovir [Truvada -] 1 tab PO DAILY 08/05/13 Ferrous Sulfate 325 mg PO DAILY 08/05/13 Multivitamin [Multivitamins] 1 each PO DAILY 08/05/13 Raltegravir [Isentress] 400 mg PO BID 08/05/13 Ranitidine HCl [Zantac] 150 mg PO HS 08/05/13 Ascorbic Acid [Vitamin C -] 500 mg PO DAILY 04/02/16 Losartan Potassium 50 mg PO BID 04/02/16 Maraviroc [Selzentry] 300 mg PO BID 04/02/16 Carvedilol [Coreg] 25 mg PO BID 10/31/16 Quetiapine Fumarate "Xr" [Seroquel XR] 50 mg PO HS 10/31/16 Quetiapine Fumarate [Seroquel -] 25 mg PO DAILY 10/31/16 Atorvastatin Ca [Lipitor] 10 mg PO HS 07/26/17 Cholecalciferol (Vitamin D3) [Vitamin D3] 1,000 unit PO DAILY 07/26/17 Folic Acid 1 mg PO DAILY 07/26/17 Gabapentin [Neurontin] 300 mg PO TID 07/26/17 Hydrochlorothiazide [Hctz -] 25 mg PO DAILY 07/26/17 Vitamin E 400 unit PO DAILY 07/26/17 Oxycodone HCl 30 mg PO TID PRN 01/14/18 Ascorbic Acid [Vitamin C -] 500 mg PO BID tablet 02/18/18 Aspirin [ASA -] 325 mg PO DAILY@0800 tablet 02/18/18 Celecoxib [CeleBREX -] 200 mg PO BID #60 capsule 02/18/18 Cephalexin Monohydrate [Keflex -] 500 mg PO TID #30 capsule 02/18/18 Multivitamins [Multivit ([facility] Formulary)] 1 tab PO DAILY tab 02/18/18 Oxycodone HCl/Acetaminophen [Percocet 5-325 mg Tablet] 1 - 2 tab PO Q4H PRN #60 tablet MDD 10 02/18/18 traMADol HCL [Ultram -] 50 mg PO Q4H PRN #42 tablet MDD 6 02/18/18
== END 2018-02-18 18:22 | disposition home health service (06) ==
LOC: FASU 05:46 → FM/S 13:42 → FASU 02-18 18:22
PROVIDERS: ATTEND Student in an Organized Health Care Education/Training Program
PROC: 8E0YXBZ Computer Assisted Procedure of Lower Extremity (ICD-10-PCS; 2018-02-17)
PROC: 8E0Y0CZ Robotic Assisted Procedure of Lower Extremity, Open Approach (ICD-10-PCS; 2018-02-17)
PROC: 0SRC0L9 Replacement of Right Knee Joint with Medial Unicondylar Synthetic Substitute, Cemented, Open Approach (ICD-10-PCS; principal; 2018-02-17 08:56)
DX: M17.11 Unilateral primary osteoarthritis, right knee (principal)
CPT/HCPCS: 20985; 27446; C1776; S2900; 36415; 73560-TC-RT-FY; 80048; 85027; 94760; 97116-GP; 97162-GP; J0131; J1100

== ENCOUNTER 2019-03-19 15:42 | Emergency (ER) | payer OTHER ==
[2019-03-19 16:03] VITALS: BP 135/90; PULSE 90; TEMP 98.3; BMI 34.5
--- NOTE | 2019-03-19 16:03 | PDOC ---
Rapid Medical Evaluation Chief Complaint: Bite Time Seen by Provider: 03/19/19 16:00 Medical Evaluation: Allergies Allergy/AdvReac Type Severity Reaction Status Date / Time No Known Drug Allergies Allergy Verified 02/05/18 14:52 03/19/19 16:01 48 year old female c/o scratch from mice to left arm. PMHX: HIV + undetectable Pe: small scratch to left forearm P; patient to fast track for further management of care, Discharge Disposition - Diagnosis Exposure to rodent - Referrals - Patient Instructions - Post Discharge Activity
[2019-03-19] MEDS ORDERED: DIPHTH,PERTUSS(ACELL),TET 0.5 ML DISP.SYRIN IM ONE ×2 (16:41→16:44)
--- NOTE | 2019-03-19 17:00 | PDOC ---
History of Present Illness - General Chief Complaint: Bite Stated Complaint: MICES SCRATCH Time Seen by Provider: 03/19/19 16:00 History Source: Patient Exam Limitations: No Limitations Past History - Past Medical History Allergies/Adverse Reactions: Allergies Allergy/AdvReac Type Severity Reaction Status Date / Time levofloxacin [From Levaquin] Allergy Verified 03/19/19 16:03 No Known Drug Allergies Allergy Verified 02/05/18 14:52 Home Medications: Ambulatory Orders Docusate Sodium [Colace -] 100 mg PO TID 08/05/13 Emtricitabine/Tenofovir [Truvada -] 1 tab PO DAILY 08/05/13 Ferrous Sulfate 325 mg PO DAILY 08/05/13 Multivitamin [Multivitamins] 1 each PO DAILY 08/05/13 Raltegravir [Isentress] 400 mg PO BID 08/05/13 Ranitidine HCl [Zantac] 150 mg PO HS 08/05/13 Ascorbic Acid [Vitamin C -] 500 mg PO DAILY 04/02/16 Losartan Potassium 50 mg PO BID 04/02/16 Maraviroc [Selzentry] 300 mg PO BID 04/02/16 Carvedilol [Coreg] 25 mg PO BID 10/31/16 Quetiapine Fumarate "Xr" [Seroquel XR] 50 mg PO HS 10/31/16 Quetiapine Fumarate [Seroquel -] 25 mg PO DAILY 10/31/16 Atorvastatin Ca [Lipitor] 10 mg PO HS 07/26/17 Cholecalciferol (Vitamin D3) [Vitamin D3] 1,000 unit PO DAILY 07/26/17 Folic Acid 1 mg PO DAILY 07/26/17 Gabapentin [Neurontin] 300 mg PO TID 07/26/17 Hydrochlorothiazide [Hctz -] 25 mg PO DAILY 07/26/17 Vitamin E 400 unit PO DAILY 07/26/17 Oxycodone HCl 30 mg PO TID PRN 01/14/18 Ascorbic Acid [Vitamin C -] 500 mg PO BID tablet 02/18/18 Aspirin [ASA -] 325 mg PO DAILY@0800 tablet 02/18/18 Celecoxib [CeleBREX -] 200 mg PO BID #60 capsule 02/18/18 Cephalexin Monohydrate [Keflex -] 500 mg PO TID #30 capsule 02/18/18 Multivitamins [Multivit ([facility] Formulary)] 1 tab PO DAILY tab 02/18/18 Oxycodone HCl/Acetaminophen [Percocet 5-325 mg Tablet] 1 - 2 tab PO Q4H PRN #60 tablet MDD 10 02/18/18 traMADol HCL [Ultram -] 50 mg PO Q4H PRN #42 tablet MDD 6 02/18/18 Anemia: Yes Asthma: No Cancer: No Cardiac Disorders: No CVA: No COPD: No CHF: No Dementia: No Diabetes: No GI Disorders: No Disorders: No HTN: Yes Hypercholesterolemia: Yes Liver Disease: No Seizures: No Thyroid Disease: No - Surgical History Abdominal Surgery: Yes (inguinal hernia) Cholecystectomy: Yes Neurologic Surgery: No Orthopedic Surgery: Yes (CTR R HAND, R KNEE ARTHOSCOPY) - Psycho Social/Smoking Cessation Hx Smoking History: Unknown if ever smoked Have you smoked in the past 12 months: No Hx Alcohol Use: No Drug/Substance Use Hx: No Substance Use Type: None Hx Substance Use Treatment: No *Physical Exam - Vital Signs Last Vital Signs Temp Pulse Resp BP Pulse Ox 98.3 F 90 18 135/90 98 03/19/19 15:59 03/19/19 15:59 03/19/19 15:59 03/19/19 15:59 03/19/19 15:59 - Physical Exam General Appearance: No: Apparent Distress Respiratory/Chest: positive: Lungs Clear, Normal Breath Sounds. negative: Respiratory Distress Cardiovascular: positive: Regular Rhythm, Regular Rate, S1, S2. negative: Murmur Extremity: positive: Other (abrasion (miniscule, dot-like) on L forearm) Integumentary: negative: Erythema, Rash, Swelling, Ecchymosis, Bruising Neurologic: positive: Alert ED Treatment Course - Medications Given in the ED: ED Medications Discontinued Medications Generic Name Dose Route Start Last Admin Trade Name Freq PRN Reason Stop Dose Admin Diphtheria/Tetanus/Acell Pertussis 0.5 ml 03/19/19 16:41 03/19/19 16:47 Boostrix - IM 03/19/19 16:42 0.5 ml .ONCE ONE Administration Medical Decision Making - Medical Decision Making 48 y/o F hx HIV, HTN, HLD, OCD, anxiety, depression, neuropathy presents s/p a mouse jumped on her L forearm and scratched her. States she was not bit. Unsure of last tetanus. Denies fever, rash, other complaints Given tetanus Stable for dc 03/19/19 16:57 Discharge - Discharge Information Problems reviewed: Yes Clinical Impression/Diagnosis: Exposure to rodent Condition: Stable Disposition: HOME - Admission No - Additional Discharge Information Prescription Drug Monitoring Program (I-STOP) results: I-STOP not reviewed - Follow up/Referral Referrals: Ector Antonio MD [Primary Care Provider] - - Patient Discharge Instructions Patient Printed Discharge Instructions: DI for Animal Bites Additional Instructions: Thank you for choosing [facility]. It was a pleasure taking care of you. Your tetanus was updated today Return to the Emergency Department if your symptoms worsen or persist, you have fever, redness, rash or other concerning symptoms. - Post Discharge Activity
== END 2019-03-19 17:01 | disposition home or self-care (01) ==
LOC: JERFT 15:42 → JER 15:42 → JERFT 17:01
PROC: 3E0234Z Introduction of Serum, Toxoid and Vaccine into Muscle, Percutaneous Approach (ICD-10-PCS; principal; 2019-03-19)
DX: S50.812A Abrasion of left forearm, initial encounter (principal); W53.09XA Other contact with mouse, initial encounter; Y93.89 Activity, other specified; Y92.038 Other place in apartment as the place of occurrence of the external cause; Y99.8 Other external cause status; X58.XXXA Exposure to other specified factors, initial encounter; D64.9 Anemia, unspecified; I10 Essential (primary) hypertension; E78.00 Pure hypercholesterolemia, unspecified; Z21 Asymptomatic human immunodeficiency virus [HIV] infection status; F41.8 Other specified anxiety disorders; F32.9 Major depressive disorder, single episode, unspecified; F42.9 Obsessive-compulsive disorder, unspecified; Z88.1 Allergy status to other antibiotic agents
CPT/HCPCS: 90715; 99281-25